=== PATIENT | female | born 1970 | race Caucasian/White ===

== ENCOUNTER → 2017-04-11 | Outpatient (CLI) | payer OTHER ==
--- NOTE | 2017-04-12 15:09 | MAMMOGRAPHY REPORT ---
BILATERAL DIGITAL SCREENING MAMMOGRAM TOMOSYNTHESIS WITH CAD: 04/11/2017 CLINICAL HISTORY: Routine screening. Patient has no complaints. TECHNIQUE: Breast tomosynthesis in addition to standard 2D mammography was performed. 2-D axes CL v iews of each breast and a repeat 2-D left MLO view were also obtained. Current study was also evalua trudy with a Computer Aided Detection (CAD) system. COMPARISON: Comparison is made to exams dated: 08/15/2012 mammogram, 08/15/2011 mammogram, 08/11/2010 m ammogram, 08/10/2009 mammogram - [facility], 08/07/2008, and 08/07/2007. BREAST COMPOSITION: The tissue of both breasts is heterogeneously dense, which may obscure small mas ses. FINDINGS: The parenchymal pattern is similar to prior mammograms. There are minimal vascular calcif ications and a benign coarse calcification in the right breast. No developing mass, architectural di stortion or cluster of suspicious microcalcifications is seen. IMPRESSION: ACR BI-RADS CATEGORY 2: BENIGN There is no mammographic evidence of malignancy. A 1 year screening mammogram is recommended. The pa tient will receive written notification of the results. Approximately 10% of breast cancers are not detected with mammography. A negative mammographic report should not delay biopsy if a clinically suggestive mass is present. Zeenat Avery M.D. ay/:04/11/2017 14:49:17 Fashion Supervisor: Peggy Brandt, [facility] letter sent: Normal 1/2 BI-RADS Code: ACR BI-RADS Category 2: Benign
== END | disposition home or self-care (01) ==
LOC: C.MAMM 14:15
PROVIDERS: ATTEND Family Medicine
DX: Z12.31 Encounter for screening mammogram for malignant neoplasm of breast (principal)